=== PATIENT | female | born 1975 | race African-American/Black ===

== ENCOUNTER 2024-03-08 19:47 | Inpatient (IN) ==
[2024-03-08] MEDS: HYDROmorphone 1 MG/1 ML SYRINGE IV ONE ×3 (20:12→21:55)
[2024-03-08] MEDS: Lactated Ringers 1000 ml BAG 1,000 ML IV ONE (20:13)
[2024-03-08 20:39] LABS: INR 1.17 (0.85-1.14)
[2024-03-08 21:07] LABS: White Blood Count 13.2 10^3/uL (3.8-11.8)
[2024-03-08 21:11] LABS: ABS Basophils 0.1 10^3/uL (0.0-0.1); ABS Eosinophils 0.2 10^3/uL (0.0-0.5); ABS Lymphocytes 0.7 10^3/uL (1.0-4.8); ABS Neutrophils 13.4 10^3/uL (1.5-7.6); ABS Nucleated RBC 1.22 10^3/ul; Anisocytosis 2+; Eosinophil % 1.2 %; Hematocrit 22.5 % (35-45); Hemoglobin 7.3 g/dL (11.5-14.3); Lymphocyte % 4.4 %; Mean Corpuscular Hgb Conc 32.4 g/dL (31-36); Mean Corpuscular Volume 74.1 fL (80-97); Microcytosis 2+; Nucleated Red Blood Cells % 7.9 %/100WBC (0.0-0.8); Platelet Count 329 10^3/uL (150-450); Polychromasia 1+; Red Blood Count 3.03 10^6/uL (3.63-4.92); Red Cell Distribution Width 23.9 % (12-17); Sickle Cells 1+; Target Cells 2+
[2024-03-08 21:19] LABS: Albumin 4.3 g/dL (3.5-5.7); Albumin/Globulin Ratio 1.4 (1-3); C Reactive Protein 5.61 mg/L (<8.01); Calcium 9.1 mg/dL (8.6-10.3); Creatinine, Serum 0.99 mg/dL (0.51-0.95); Total Bilirubin 1.6 mg/dL (0.2-1.0); Total Protein 7.3 g/dL (6.4-8.9); eGFR CKD-EPI 69.9 (>60)
[2024-03-08 21:25] LABS: HCG Pregnancy 1.59 mIU/mL
[2024-03-08 21:44] LABS: Corrected Retic Count 5.1 % (0.5-2.2); Hematocrit for Retic CNT 22.5 % (35-45); RBC Retic Count 3.03 10^6/ul (3.63-4.92)
[2024-03-08 21:58] LABS: High Sensitivity Troponin 1 Hr 3 pg/mL (<15)
[2024-03-08] MEDS ORDERED: HYDROmorphone 1 MG/1 ML SYRINGE IV PRN (22:16)
[2024-03-08] MEDS: NS 0.9% 1000 ml BAG 1,000 ML IV SCH (22:49)
[2024-03-08] MEDS: Enoxaparin 40 MG/0.4 ML SYR SUBCUT SCH (22:53)
[2024-03-08] MEDS ORDERED: Naloxone 0.4 mg VIAL 0.4 mg/ml 1 ml VIAL IV PUSH PRN (23:02)
[2024-03-08] MEDS ORDERED: Ondansetron 4 mg VIAL 2 MG/ML 2 ml VIAL IV PRN (23:09)
[2024-03-08] MEDS: HYDROmorphone 1 MG/1 ML SYRINGE IV SLOW PU ONE (23:28)
[2024-03-09] MEDS: HYDROmorphone 1 MG/1 ML SYRINGE IV PRN (01:29)
[2024-03-09 03:46] LABS: Urine Appearance Clear; Urine Bilirubin Negative (Negative); Urine Blood 3+ (Negative); Urine Glucose Negative (Negative); Urine Ketones Trace (Negative); Urine Nitrite Negative (Negative); Urine Protein 1+ (>=30 mg/dL) (Negative); Urine Specific Gravity 1.014 (1.002-1.030); Urine Urobilinogen Negative (Negative); Urine pH 6.5 (5.0-8.0)
[2024-03-09 03:53] LABS: Urine Bacteria 1+ /HPF (Absent); Urine Red Blood Cell 3+(>10/hpf) /HPF (0-Trace); Urine Squamous Epithelial Cell Present /HPF (Absent); Urine White Blood Cell 2+(11-20/hpf) /HPF (0-Trace)
[2024-03-09 03:58] LABS: Urine Color Light-Orange
[2024-03-09 06:08] LABS: Hemoglobin 6.6 g/dL (11.5-14.3); Mean Corpuscular Hemoglobin 23.8 pg (27-33); Mean Corpuscular Hgb Conc 31.4 g/dL (31-36); Mean Corpuscular Volume 75.8 fL (80-97); Platelet Count 285 10^3/uL (150-450); Red Blood Count 2.77 10^6/uL (3.63-4.92); Red Cell Distribution Width 23.3 % (12-17)
[2024-03-09 06:30] LABS: Calcium 8.4 mg/dL (8.6-10.3); Creatinine, Serum 0.82 mg/dL (0.51-0.95); Magnesium 1.8 mg/dL (1.9-2.7); Potassium 4.3 mmol/L (3.5-5.0); eGFR CKD-EPI 87.6 (>60)
[2024-03-09] MEDS: fentaNYL PATCH 50 MCG/HR 1 PATCH TRANSDERM SCH (07:23)
[2024-03-09 07:33] LABS: White Blood Count 13.3 10^3/uL (3.8-11.8)
[2024-03-09 07:34] LABS: ABS Basophils 0.1 10^3/uL (0.0-0.1); ABS Eosinophils 0.1 10^3/uL (0.0-0.5); ABS Lymphocytes 0.5 10^3/uL (1.0-4.8); ABS Monocytes 1.9 10^3/uL (0.0-0.9); ABS Nucleated RBC 3.32 10^3/ul; Anisocytosis 3+; Basophilic Stippling 2+; Eosinophil % 0.5 %; Hypochromasia 1+; Microcytosis 1+; Nucleated Red Blood Cells % 24.5 %/100WBC (0.0-0.8); Sickle Cells 2+; Target Cells 2+
[2024-03-09] MEDS: fentaNYL Patch Check Q Shift NOTE FOLLOW UP SCH (07:35)
[2024-03-09] MEDS: Magnesium Sulfate 2 gm BAG 2 GM/50 ML BAG IVPB ONE (07:57)
[2024-03-09] MEDS: DULoxetine DR 20 mg CAP PO SCH (09:47)
[2024-03-09] MEDS: Polyethylene Glycol 3350 17 GM PACKET PO SCH (10:34)
[2024-03-09] MEDS ORDERED: HYDROmorphone 1 MG/1 ML SYRINGE IV PRN (12:27)
[2024-03-09] MEDS ORDERED: Naloxone 0.4 mg VIAL 0.4 mg/ml 1 ml VIAL IV PUSH PRN (12:34)
[2024-03-09] MEDS: Morphine PCA ADULT 5 MG/ML 30 ML PCA SCH (14:42)
[2024-03-09] MEDS ORDERED: Sulfamethox/Trimethoprim DS TAB 800/160 mg PO SCH (16:00)
[2024-03-09] MEDS: cefTRIAXone 1 gm/50 mL D5W 1 GM/50 ML BAG IV SCH (17:15)
[2024-03-09] MEDS: Acetaminophen IV 1 GM/100ML 1,000 MG/100 ML BAG IV PRN (18:07)
[2024-03-09] MEDS: HYDROmorphone 1 MG/1 ML SYRINGE IV ONE (18:12)
[2024-03-09] MEDS: HYDROmorphone 1 MG/1 ML SYRINGE IV SLOW PU PRN ×2 (20:35→21:49)
[2024-03-09] MEDS: fentaNYL PATCH 25 MCG/HR 1 PATCH TRANSDERM SCH (21:19)
[2024-03-10 05:58] LABS: White Blood Count 7.5 10^3/uL (3.8-11.8)
[2024-03-10 06:06] LABS: Hematocrit 23.7 % (35-45); Hemoglobin 7.3 g/dL (11.5-14.3); Mean Corpuscular Hemoglobin 23.9 pg (27-33); Mean Corpuscular Hgb Conc 30.8 g/dL (31-36); Mean Corpuscular Volume 77.7 fL (80-97); Mean Platelet Volume 8.6 fL (7.5-11.2); Platelet Count 264 10^3/uL (150-450); Red Blood Count 3.06 10^6/uL (3.63-4.92); Red Cell Distribution Width 23.3 % (12-17)
[2024-03-10 06:11] LABS: ABS Eosinophils 0.1 10^3/ul (0.0-0.5); ABS Lymphocytes 0.5 10^3/ul (1.0-4.8); ABS Monocytes 0.5 10^3/ul (0.0-0.9); ABS Neutrophils 6.4 10^3/ul (1.5-7.6)
[2024-03-10 06:12] LABS: Anisocytosis 2+; Howell Jolly Bodies Present; Hypersegmented Neutrophils Present; Microcytosis 1+; Polychromasia 1+; Sickle Cells 1+; Target Cells 2+
[2024-03-10 06:45] LABS: Calcium 8.3 mg/dL (8.6-10.3); Creatinine, Serum 0.64 mg/dL (0.51-0.95); Magnesium 1.8 mg/dL (1.9-2.7); Potassium 4.1 mmol/L (3.5-5.0); eGFR CKD-EPI 108.3 (>60)
[2024-03-10] MEDS: Magnesium Sulfate 2 gm BAG 2 GM/50 ML BAG IVPB ONE (08:27)
[2024-03-10] MEDS ORDERED: Naloxone 0.4 mg VIAL 0.4 mg/ml 1 ml VIAL IV PUSH PRN (10:55)
[2024-03-10 11:44] LABS: Immature Retic Fraction 0.47
[2024-03-10 11:48] LABS: Corrected Retic Count 4.8 % (0.5-2.2); Hematocrit for Retic CNT 23.7 % (35-45); RBC Retic Count 3.06 10^6/ul (3.63-4.92)
[2024-03-10] MEDS: HYDROmorphone PCA 20 MG/20 ML PCA.SYRING PCA SCH ×2 (12:26→17:30)
[2024-03-10] MEDS: NS 0.9% 1000 ml BAG 1,000 ML IV SCH (12:39)
[2024-03-10] MEDS ORDERED: HYDROmorphone 1 MG/1 ML SYRINGE IV SLOW PU PRN ×3 (15:15→15:32)
[2024-03-10] MEDS: HYDROmorphone 1 MG/1 ML SYRINGE IV SLOW PU PRN (15:55)
[2024-03-10] MEDS: fentaNYL PATCH 50 MCG/HR 1 PATCH TRANSDERM SCH (17:30)
[2024-03-10] MEDS: Senna TAB 8.6 mg TAB PO PRN (20:59)
[2024-03-11 06:26] LABS: Hematocrit 19.6 % (35-45); Hemoglobin 6.2 g/dL (11.5-14.3); Mean Corpuscular Hemoglobin 23.7 pg (27-33); Mean Corpuscular Hgb Conc 31.6 g/dL (31-36); Mean Corpuscular Volume 75.2 fL (80-97); Mean Platelet Volume 9.4 fL (7.5-11.2); Platelet Count 253 10^3/uL (150-450); Red Blood Count 2.61 10^6/uL (3.63-4.92); Red Cell Distribution Width 22.2 % (12-17)
[2024-03-11 06:46] LABS: Creatinine, Serum 0.54 mg/dL (0.51-0.95); Magnesium 1.8 mg/dL (1.9-2.7); eGFR CKD-EPI 112.8 (>60)
[2024-03-11 07:55] LABS: White Blood Count 6.2 10^3/uL (3.8-11.8)
[2024-03-11 07:56] LABS: ABS Basophils 0.1 10^3/uL (0.0-0.1); ABS Eosinophils 0.1 10^3/uL (0.0-0.5); ABS Lymphocytes 0.3 10^3/uL (1.0-4.8); ABS Monocytes 1.2 10^3/uL (0.0-0.9); ABS Neutrophils 8.3 10^3/uL (1.5-7.6); Anisocytosis 3+; Eosinophil % 0.8 %; Howell Jolly Bodies Present; Lymphocyte % 3.2 %; Microcytosis 1+; Polychromasia 1+; Sickle Cells 1+; Target Cells 2+
[2024-03-11] MEDS: Magnesium Sulfate 2 gm BAG 2 GM/50 ML BAG IVPB ONE (08:00)
[2024-03-11] MEDS: Iohexol 350 (CONTRAST) 500 ML MDV IV ONE (12:40)
[2024-03-11] MEDS: Senna TAB 8.6 mg TAB PO SCH (20:35)
[2024-03-12 06:25] LABS: Calcium 8.2 mg/dL (8.6-10.3); Creatinine, Serum 0.53 mg/dL (0.51-0.95); Magnesium 1.9 mg/dL (1.9-2.7); Potassium 4.4 mmol/L (3.5-5.0); eGFR CKD-EPI 113.3 (>60)
[2024-03-12 07:30] LABS: White Blood Count 8.3 10^3/uL (3.8-11.8)
[2024-03-12 07:33] LABS: Eosinophil % 1.5 %; Hematocrit 21.5 % (35-45); Hemoglobin 7.1 g/dL (11.5-14.3); Lymphocyte % 3.9 %; Mean Corpuscular Hemoglobin 24.8 pg (27-33); Mean Corpuscular Hgb Conc 32.9 g/dL (31-36); Mean Corpuscular Volume 75.4 fL (80-97); Mean Platelet Volume 9.6 fL (7.5-11.2); Platelet Count 272 10^3/uL (150-450); Red Blood Count 2.85 10^6/uL (3.63-4.92); Red Cell Distribution Width 20.9 % (12-17)
[2024-03-12 07:34] LABS: ABS Lymphocytes 0.5 10^3/ul (1.0-4.8); ABS Neutrophils 6.8 10^3/ul (1.5-7.6)
[2024-03-12 07:46] LABS: Anisocytosis 3+; Microcytosis 1+; Sickle Cells 1+; Target Cells 2+
[2024-03-12 07:59] LABS: Nucleated Red Blood Cells % 18.1 %/100WBC (0.0-0.8)
[2024-03-12] MEDS: HYDROmorphone 1 MG/1 ML SYRINGE IV SLOW PU PRN (14:45)
[2024-03-13 07:47] LABS: Calcium 8.5 mg/dL (8.6-10.3); Creatinine, Serum 0.5 mg/dL (0.51-0.95); Magnesium 1.7 mg/dL (1.9-2.7); Potassium 4.2 mmol/L (3.5-5.0); eGFR CKD-EPI 114.9 (>60)
[2024-03-13 07:58] LABS: Hematocrit 20.1 % (35-45); Hemoglobin 6.9 g/dL (11.5-14.3); Mean Corpuscular Hemoglobin 25.3 pg (27-33); Mean Corpuscular Hgb Conc 34.2 g/dL (31-36); Mean Corpuscular Volume 74.2 fL (80-97); Mean Platelet Volume 9.6 fL (7.5-11.2); Platelet Count 285 10^3/uL (150-450); Red Blood Count 2.71 10^6/uL (3.63-4.92); Red Cell Distribution Width 20.9 % (12-17); White Blood Count 6.6 10^3/uL (3.8-11.8)
[2024-03-13 08:24] LABS: Acanthocytes 3+; Hypochromasia 3+; Microcytosis 2+; Polychromasia 2+; Target Cells 2+
[2024-03-13 08:25] LABS: ABS Eosinophils 0.2 10^3/ul (0.0-0.5); ABS Lymphocytes 0.3 10^3/ul (1.0-4.8); ABS Monocytes 0.5 10^3/ul (0.0-0.9); ABS Neutrophils 5.6 10^3/ul (1.5-7.6)
[2024-03-13 13:45] VITALS: BP 131/67
== END 2024-03-13 14:30 | disposition home or self-care (01) | DRG 812 ==
LOC: ED 19:47 → EDHOLD 19:47 → SUATTDRO 22:24 → MEDTELE 03-09 12:50
PROVIDERS: ADMIT Student in an Organized Health Care Education/Training Program; ATTEND Student in an Organized Health Care Education/Training Program